=== PATIENT | female | born 1970 | race Caucasian/White ===

== ENCOUNTER 2023-10-14 20:18 | Emergency (ER) | payer OTHER, SELFPAY ==
[2023-10-14 20:24] VITALS: BP 138/95
--- NOTE | 2023-10-14 20:57 | ED.GENMED ---
History of Present Illness
General
Chief Complaint: Headache
Source: patient
Exam Limitations: none
Time Seen by Provider: 10/14/23 20:46
History of Present Illness
History of Present Illness:
See MDM
Past History
Past History
ED Past Medical History: Other (Migraines, Alcohol abuse, anxiety); Negative Asthma, HTN, Hypercholesterolemia or NIDDM
ED Past Surgical History: Gynecological (Breast augmentation)
Social History
Tobacco: Smoker (Marijuana)
Alcohol: Occasional
Drug: Marijuana
Personal: Single
Living: with family
Employment: Not employed
Family History
Family History: Other (Noncontributory)
Phy Exam
Physical Exam
Physical Exam:
See MDM
Course
Orders/Labs/Results
Orders:
Orders
10/14/23 20:52
0.9% Sodium Chloride 1000 ml [Nss] 1,000 ml IV BOLUS
Diphenhydramine [Benadryl] 25 mg IV NOW STA
Ketorolac [Toradol] 30 mg IV NOW STA
Metoclopramide [Reglan] 10 mg IV NOW STA
10/14/23 21:12
Complete Blood Count/With Diff Urgent
Comprehensive Metabolic Panel Urgent
10/14/23 21:21
Diphenhydramine [Benadryl] 25 mg IV NOW STA
10/14/23 22:37
HYDROmorphone [Dilaudid] 0.5 mg IV NOW STA
Abnormal Lab Results
10/14/23
21:12
WBC 19.1 H 10^3/uL
(4.8-10.8)
MCH 31.4 H pg
(27.0-31.0)
Abs Immat Gran (auto) 0.2 H 10^3/uL
(0-0.05)
Absolute Neuts (auto) 17.4 H 10^3/uL
(1.4-6.5)
Absolute Lymphs (auto) 1.1 L 10^3/uL
(1.2-3.4)
Immature Gran % 0.9 H %
(0-0.5)
Neutrophils % 91.1 H %
(42.2-75.2)
Lymphocytes % 5.6 L %
(20.5-51.1)
Carbon Dioxide 18 L mmol/L
(22-30)
Glucose 201 H mg/dl
(70-99)
10/14/23 21:12
10/14/23 21:12
Vital Signs
Initial and Last Documented VS:
Initial Vital Signs
Temp Pulse Resp BP Pulse Ox
98.3 F 82 20 138/95 99
10/14/23 20:24 10/14/23 20:24 10/14/23 20:24 10/14/23 20:24 10/14/23 20:24
Last Documented Vital Signs
Temp Pulse Resp BP Pulse Ox
98.3 F 82 20 131/89 98
10/14/23 20:24 10/14/23 20:24 10/14/23 20:24 10/14/23 22:00 10/14/23 22:00
MDM/Problems Addressed
Differential Diagnosis Includes:
HPI and MDM Narrative:
53-year-old female presenting for evaluation of right-sided migraine. She has a history of migraines and recently ran out of her sumatriptan. She complains of photophobia and phonophobia. Patient took nausea medicine at home with no relief.
On exam, she does appear uncomfortable. She has no tenderness to temporal artery palpation. Given her history of migraines with self-reported similar symptoms, will treat with fluids, Toradol, Reglan and Benadryl and continue to reassess
Physical exam
General: Mildly uncomfortable
HEENT: protecting airway. No tenderness to palpation of temporal artery
Neck: appears supple
CV: No evidence of cyanosis
Resp: No accessory muscle use
Abd: Non-distended
Extremities: No deformities
Neuro: alert
Psych: Normal affect
Skin: Intact
Problems Addressed including Acute and Chronic Conditions affecting care:
1. Migraine
Acuity: acute
Prognosis: stable
Details: Given her history, will give fluids, Toradol, Reglan and Benadryl
Updates
On reevaluation after medication, patient feeling much better and feels comfortable going home.
Differential Diagnosis (but not limited to): Migraine, GI bug
Testing considered: CT head but no focal deficits
Drug therapy (if applicable): OTC meds, please see d/c instruction regarding Rx drugs
Amount and/or Complexity of Data Reviewed
Clinical info obtained from: Patient
External data reviewed: N/A
Labs I independently reviewed (but not limited to): Reactive leukocytosis
Radiology: N/A
Pulse Ox: not hypoxic
EKG independently reviewed: N/A
Manager Electronic: N/A
Critical Care: N/A
Risk of Complication:
Social Determinants of health: Good social support
Discussed with other providers: N/A
Escalation of Care includes Admit/Obs: After being observed in the Emergency Department, pt stable for discharge.
Occasional wrong word or 'sound a like' substitutions may have occurred due to the inherent limitations of voice recognition software. Read the chart carefully and recognize, using context, where substitutions have occurred.
*Critical Care Note
Total Time (30-74mins, 75-104mins- exclusive of procedures): Not Applicable
ED Attending Note
-
Portions of this chart may have been created with voice recognition software.� Occasional wrong word or��sound alike� substitutions may have occurred due to the inherent limitations of voice recognition software.
Discharge Plan
Departure
Patient Disposition: Home (Routine Discharge)
Date of Disposition: 10/14/23
Time of Disposition: 22:20
Patient with high blood pressure during this ER visit?: No
Discharge Problem:
Migraine
Instructions: Migraines (DC)
Prescriptions:
New
sumatriptan succinate 100 mg tablet
100 mg PO ONCE PRN (Reason: migraine headache) Qty: 30 0RF
metoclopramide HCl [Reglan] 10 mg tablet
10 mg PO Q8HPRN PRN (Reason: nausea and vomiting) Qty: 14 0RF
No Action
sumatriptan succinate 50 MG tablet
100 mg PO DAILY PRN (Reason: migraine)
triamcinolone acetonide 0.1 % cream
1 applic TOPICAL BID PRN (Reason: eczema)
trazodone 100 mg tablet
100 mg PO HS
promethazine 25 mg tablet
25 mg PO DAILYPRN PRN (Reason: nausea vomiting) 7 Days Qty: 7 0RF
Activity Restrictions/Additional Instructions:
Please return for any worsening symptoms.
You may return at any time if you have further concerns.
Please follow up with your doctor at the first available appointment, preferably this week.
Thank you for choosing [facility].
Interventions
Interventions:
*Risk Screen - Suicide Last Done: 10/14/23 21:02
*General Assessment Last Done: 10/14/23 20:24
*Neglect/Abuse Screening Last Done: 10/14/23 20:24
ED- Fall Risk Assessment Last Done: 10/14/23 20:24
*ED COVID-19 Vaccine History Last Done: 10/14/23 20:24
ED- Neurological Assessment Last Done: 10/14/23 21:02
Discharge Date and Time
Print Language: ALGERIAN
[2023-10-14 21:02] VITALS: BMI 22.5
[2023-10-14] MEDS: NSS 1000 IV (21:12)
[2023-10-14] MEDS: TORADOL 30 MG IV (21:13)
[2023-10-14] MEDS: BENADRYL 25 MG IV (21:16)
[2023-10-14] MEDS: REGLAN 10 MG IV (21:17)
[2023-10-14 21:29] LABS: % Basophils 0.3 % (0-2); % Eosinophils 0.1 % (0-6); % Immature Granulocytes 0.9 % (0-0.5); % Lymphocytes 5.6 % (20.5-51.1); % Neutrophils 91.1 % (42.2-75.2); Absolute Basophils 0.1 10^3/uL (0-0.2); Absolute Immature Granulocytes 0.2 10^3/uL (0-0.05); Absolute Lymphocytes 1.1 10^3/uL (1.2-3.4); Absolute Monocytes 0.4 10^3/uL (0.1-0.6); Absolute Neutrophils 17.4 10^3/uL (1.4-6.5); Hematocrit 39.4 % (37.0-47.0); Mean Corp Hgb Conc. 35.5 g/dL (33.0-37.0); Mean Corpuscular Hgb 31.4 pg (27.0-31.0); Mean Corpuscular Volume 88.3 fL (81.0-99.0); Mean Platelet Volume 9.6 fL (7.4-10.4); Nucleated Red Blood Cells % 0 %; Platelet Count 284 10^3/uL (130-400); Red Blood Cell Count 4.46 10^6/uL (4.20-5.40); Red Cell Dist. Width 13.7 % (11.5-14.5); White Blood Cell Count 19.1 10^3/uL (4.8-10.8)
[2023-10-14 21:52] LABS: AST (SGOT) 26 U/L (14-36); Alkaline Phosphatase 80 U/L (38-126); Blood Urea Nitrogen 14 mg/dl (7-17); Calcium 9.8 mg/dl (8.4-10.2); Carbon Dioxide 18 mmol/L (22-30); Chloride 104 mmol/L (98-107); Estimated Creatinine Clearance 88 ml/min; Glucose 201 mg/dl (70-99); Sodium 137 mmol/L (135-145); Total Bilirubin 0.8 mg/dl (0.2-1.3); Total Protein 7.6 g/dl (6.3-8.2); eGFR > 60.00
[2023-10-14 22:00] VITALS: BP 131/89
[2023-10-14] MEDS: DILAUDID 0.5 MG IV (22:44)
[2023-10-14 23:06] LABS: ALT (SGPT) < 30 U/L (0-35)
== END 2023-10-14 23:40 | disposition home or self-care (01) ==
LOC: EMR 20:18
PROVIDERS: Emergency Medicine; EMERGENCY PHYSICIAN Student in an Organized Health Care Education/Training Program; FAMILY PHYSICIAN Internal Medicine
DX: R51.9 Headache, unspecified (principal); F10.10 Alcohol abuse, uncomplicated; F41.9 Anxiety disorder, unspecified; F12.10 Cannabis abuse, uncomplicated
CPT/HCPCS: 99283; 96374; 96375; 96376; 96361; 80053; 85025

== ENCOUNTER 2024-01-03 08:17 | Emergency (ER) | payer OTHER, SELFPAY ==
[2024-01-03 08:19] VITALS: BP 143/101
--- NOTE | 2024-01-03 08:24 | ED.GENMED ---
History of Present Illness
General
Chief Complaint: Abdominal Symptoms
Source: patient
Exam Limitations: none
Time Seen by Provider: 01/03/24 08:24
History of Present Illness
History of Present Illness:
53-year-old female presents with onset of headache gradually worsening since yesterday with associated vomiting since the onset. She takes Ozempic. No recent dose of the Ozempic. She is also currently on Keflex for a left leg infection. She has
a history of migraines. This headache feels like her migraines in the past no different. She tried Zofran and Reglan but she vomited them up at home. No fevers. She notes abdominal discomfort diffusely. No loss of vision or blurry vision. No
other complaints at this time
Past History
Past History
ED Past Medical History: Other (Migraines, Alcohol abuse, anxiety); Negative Asthma, HTN, Hypercholesterolemia or NIDDM
ED Past Surgical History: Gynecological (Breast augmentation)
Social History
Tobacco: Smoker (Marijuana)
Alcohol: Occasional
Drug: Marijuana
Personal: Single
Living: with family
Employment: Not employed
Family History
Family History: Other (Noncontributory)
Phy Exam
Physical Exam
Physical Exam:
General: Somewhat ill-appearing female no acute respiratory distress
HEENT: Normocephalic atraumatic pupils equal round reactive to light
Heart: Regular rate and rhythm
Lungs: Clear no wheeze
Abdomen soft mildly diffusely tender nondistended no guarding or rebound normal bowel sounds
Extremities: No cyanosis
Skin: Warm no rash
Course
Orders/Labs/Results
Orders:
Orders
01/03/24
Electrocardiogram (*1) Stat
Reason for Study: Chest Pain
Comment: DONE
01/03/24 08:23
0.9% Sodium Chloride 1000 ml [Nss] 1,000 ml IV BOLUS
Diphenhydramine [Benadryl] 25 mg IV NOW STA
Metoclopramide [Reglan] 10 mg IV NOW STA
01/03/24 08:38
Complete Blood Count/With Diff Urgent
Comprehensive Metabolic Panel Urgent
Lipase Urgent
01/03/24 08:55
Ketorolac [Toradol] 15 mg IV NOW STA
01/03/24 09:40
0.9% Sodium Chloride 1000 ml [Nss] 1,000 ml IV BOLUS
Abnormal Lab Results
01/03/24
08:38
WBC 15.8 H 10^3/uL
(4.8-10.8)
Plt Count 411 H 10^3/uL
(130-400)
Abs Immat Gran (auto) 0.1 H 10^3/uL
(0-0.05)
Absolute Neuts (auto) 13.8 H 10^3/uL
(1.4-6.5)
Neutrophils % 87.7 H %
(42.2-75.2)
Lymphocytes % 9.9 L %
(20.5-51.1)
Monocytes % 1.5 L %
(1.7-9.3)
Carbon Dioxide 14 L* mmol/L
(22-30)
Glucose 186 H mg/dl
(70-99)
Calcium 10.3 H mg/dl
(8.4-10.2)
ALT 47 H U/L
(0-35)
01/03/24 08:38
01/03/24 08:38
Vital Signs
Initial and Last Documented VS:
Initial Vital Signs
Temp Pulse Resp BP Pulse Ox
98.1 F 105 20 143/101 99
01/03/24 08:19 01/03/24 08:19 01/03/24 08:19 01/03/24 08:19 01/03/24 08:19
Last Documented Vital Signs
Temp Pulse Resp BP Pulse Ox
98.1 F 104 22 128/86 95
01/03/24 08:19 01/03/24 10:00 01/03/24 10:00 01/03/24 10:00 01/03/24 10:00
MDM/Problems Addressed
Differential Diagnosis Includes:
Patient with migraine type headache consistent with her prior migraines with associated vomiting. Vomiting could be related to migraine or adverse reaction from Ozempic or Keflex. Also consider viral illness. Abdomen exam is fairly benign.
Considered imaging but not indicated at this time. Will check labs including lipase. Hydrate Reglan and Benadryl ordered for symptoms.
EKG pending
*Critical Care Note
Total Time (30-74mins, 75-104mins- exclusive of procedures): Not Applicable
Update Note
Update Note:
Patient reevaluated multiple times. Feeling much better nausea is improved headache is improved. Patient's white count is elevated likely from acute phase reactant. Patient CO2 was low but she was hyperventilating upon arrival. Patient has
nausea medicine at home advise continue. She will follow-up with her family doctor stable for discharge.
ED Attending Note
-
Portions of this chart may have been created with voice recognition software.� Occasional wrong word or��sound alike� substitutions may have occurred due to the inherent limitations of voice recognition software.
Discharge Plan
Departure
Patient Disposition: Home (Routine Discharge)
Date of Disposition: 01/03/24
Time of Disposition: 11:44
Patient with high blood pressure during this ER visit?: No
Discharge Problem:
Migraine, Vomiting
Instructions: Nausea and Vomiting, Adult (DC)
Prescriptions:
No Action
trazodone 100 mg tablet
100 mg PO HS
metoprolol succinate [Toprol XL] 50 mg Tablet Extended Release 24 Hr
50 mg PO DAILY
hydrocodone-acetaminophen 5-325 mg Tablet
1 tab PO Q4HPRN PRN (Reason: severe pain)
ibuprofen [Advil] 200 mg Tablet
400 mg PO Q6HPRN PRN (Reason: mild pain)
escitalopram oxalate [Lexapro] 5 mg Tablet
5 mg PO HS
Nurtec ODT 75 mg Tablet,Disintegrating
75 mg PO DAILYPRN PRN (Reason: migraines)
Nutrafol Women Hair Growth capsule
1 cap PO DAILY
sumatriptan succinate 100 mg tablet
100 mg PO DAILYPRN PRN (Reason: migraine headache)
Referrals:
Vu Rodriges MD [Family Provider] -
Activity Restrictions/Additional Instructions:
Rest. Drink plenty fluids. Use your nausea medicine as needed. Turn if worse otherwise follow-up with your family doctor
Interventions
Interventions:
*Risk Screen - Suicide Last Done: 01/03/24 09:00
*General Assessment Last Done: 01/03/24 08:57
*Neglect/Abuse Screening Last Done: 01/03/24 09:00
*ED COVID-19 Vaccine History Last Done: 01/03/24 08:51
TC-Fuikwq-Yiijnittmc Assessment Last Done: 01/03/24 09:00
Discharge Date and Time
Print Language: KYRGYZ
[2024-01-03] MEDS: BENADRYL 25 MG IV (08:26)
[2024-01-03] MEDS: REGLAN 10 MG IV (08:26)
[2024-01-03] MEDS: NSS 1000 IV ×2 (08:27→10:06)
[2024-01-03 08:45] LABS: % Basophils 0.4 % (0-2); % Eosinophils 0.1 % (0-6); % Immature Granulocytes 0.4 % (0-0.5); % Lymphocytes 9.9 % (20.5-51.1); % Monocytes 1.5 % (1.7-9.3); % Neutrophils 87.7 % (42.2-75.2); Absolute Basophils 0.1 10^3/uL (0-0.2); Absolute Immature Granulocytes 0.1 10^3/uL (0-0.05); Absolute Lymphocytes 1.6 10^3/uL (1.2-3.4); Absolute Monocytes 0.2 10^3/uL (0.1-0.6); Absolute Neutrophils 13.8 10^3/uL (1.4-6.5); Hematocrit 42.2 % (37.0-47.0); Hemoglobin 14.9 g/dL (12.0-16.0); Mean Corp Hgb Conc. 35.3 g/dL (33.0-37.0); Mean Corpuscular Hgb 30.6 pg (27.0-31.0); Mean Corpuscular Volume 86.7 fL (81.0-99.0); Mean Platelet Volume 9.3 fL (7.4-10.4); Nucleated Red Blood Cells % 0 %; Platelet Count 411 10^3/uL (130-400); Red Blood Cell Count 4.87 10^6/uL (4.20-5.40); Red Cell Dist. Width 14.3 % (11.5-14.5); White Blood Cell Count 15.8 10^3/uL (4.8-10.8)
[2024-01-03 09:00] VITALS: BP 140/91
[2024-01-03 09:04] LABS: AST (SGOT) 36 U/L (14-36); Alkaline Phosphatase 73 U/L (38-126); Blood Urea Nitrogen 14 mg/dl (7-17); Calcium 10.3 mg/dl (8.4-10.2); Chloride 104 mmol/L (98-107); Estimated Creatinine Clearance 88 ml/min; Glucose 186 mg/dl (70-99); Lipase 71 U/L (23-300); Sodium 140 mmol/L (135-145); Total Bilirubin 0.4 mg/dl (0.2-1.3); Total Protein 7.5 g/dl (6.3-8.2); eGFR > 60.00
[2024-01-03] MEDS: TORADOL 15 MG IV (09:07)
[2024-01-03 09:18] LABS: ALT (SGPT) 47 U/L (0-35); Albumin 4.8 g/dl (3.5-5.0); Carbon Dioxide 14 mmol/L (22-30)
[2024-01-03 10:00] VITALS: BP 128/86
[2024-01-03 11:00] VITALS: BP 130/86
[2024-01-03 12:00] VITALS: BP 125/89
== END 2024-01-03 12:25 | disposition home or self-care (01) ==
LOC: EMR 08:17
PROVIDERS: Physician Assistant; EMERGENCY PHYSICIAN Emergency Medicine; FAMILY PHYSICIAN Internal Medicine
DX: R11.2 Nausea with vomiting, unspecified (principal); R51.9 Headache, unspecified; F17.200 Nicotine dependence, unspecified, uncomplicated; F12.90 Cannabis use, unspecified, uncomplicated; Z79.85 Long-term (current) use of injectable non-insulin antidiabetic drugs
CPT/HCPCS: 99284; 96374; 96375; 96361; 80053; 83690; 85025; 93005

== ENCOUNTER 2024-01-19 15:07 | Inpatient (IN) | payer OTHER, SELFPAY ==
[2024-01-19] VITALS (8 sets, daily range): BP systolic 140–174; BP diastolic 102–131; BMI 23.2; BMI 22.6
--- NOTE | 2024-01-19 08:41 | ED.GENMED ---
History of Present Illness
General
Chief Complaint: Abdominal Symptoms
Time Seen by Provider: 01/19/24 08:25
History of Present Illness
History of Present Illness:
53-year-old female presents to the emergency department for evaluation of acute onset of lower abdominal pain associated with vomiting and diarrhea beginning earlier this morning. Pain has been severe, colicky in nature, and she has been unable to
tolerate any p.o. fluids. She did start Ozempic approximately 6 weeks ago, no reported dose changes recently. No prior abdominal surgeries
Past History
Past History
ED Past Medical History: Other (Migraines, Alcohol abuse, anxiety); Negative Asthma, HTN, Hypercholesterolemia or NIDDM
ED Past Surgical History: Gynecological (Breast augmentation)
Social History
Tobacco: Smoker (Marijuana)
Alcohol: Occasional
Drug: Marijuana
Personal: Single
Living: with family
Employment: Not employed
Family History
Family History: Other (Noncontributory)
Review of Systems
Review of Systems
Allergies reviewed?: Yes
All Other Systems: ROS reviewed and negative except as documented in HPI and ROS
Phy Exam
Physical Exam
Physical Exam:
GEN: Writhing In pain, tearful
Eyes: PERRLA, EOMs intact, no scleral icterus
HENT: NCAT, oral mucosa moist, no JVD, no cervical adenopathy.
Lungs: CTAB, no wheezes, rales, rhonchi, normal chest wall excursion
Cardiac: Tachycardic, regular
Abdomen: Soft, tenderness elicited to all 4 quadrants, focality, no rigidity
Neuro: AO x 3
MSK: No gross deformity or ecchymosis. No edema. No digital clubbing
Skin: No rashes, petechiae. Normal color, no pallor or jaundice.
Psych: Calm, cooperative, proper hygiene
Course
Orders/Labs/Results
Orders:
Orders
01/19/24 08:34
0.9% Sodium Chloride 1000 ml [Nss] 1,000 ml IV BOLUS
Ketorolac [Toradol] 15 mg IV NOW STA
Ondansetron Injectable [Zofran] 4 mg IV NOW STA
01/19/24 08:54
Test Result ONCE
01/19/24 08:56
CMP [Comprehensive Metabolic Panel] Urgent
Complete Blood Count/With Diff Urgent
HCG, Serum Qualitative Screen Urgent
Lipase Urgent
Manual Differential Urgent
01/19/24 08:59
HYDROmorphone [Dilaudid] 0.5 mg IV NOW STA
01/19/24 09:37
CT Abd/Pel (IV only)-DH only Urgent
Comment:
Reason For Exam: N/V/D, generalized pain
HYDROmorphone [Dilaudid] 0.5 mg IV NOW STA
01/19/24 10:49
Morphine Sulfate 4 mg IV NOW STA
01/19/24 10:56
Metoclopramide [Reglan] 10 mg IV NOW STA
01/19/24 11:27
Urinalysis Reflex To Culture Urgent
Date Specimen was Collected: 01/19/24
Time Specimen was Collected: 11:21
01/19/24 12:18
Lactic Acid Routine
Abnormal Lab Results
01/19/24 01/19/24
08:56 11:27
WBC 22.2 H 10^3/uL
(4.8-10.8)
RDW 14.6 H %
(11.5-14.5)
Abs Neuts (Manual) 19.7 H 10^3/uL
(1.4-6.5)
Segmented Neutrophils 89 H %
(42-75)
Lymphocytes (Manual) 11 L %
(20-51)
Carbon Dioxide 16 L mmol/L
(22-30)
Glucose 136 H mg/dl
(70-99)
Albumin 5.1 H g/dl
(3.5-5.0)
Urine Ketones 2+ A
(Negative)
Urine Glucose Trace A
(Negative)
01/19/24 08:56
01/19/24 08:56
Vital Signs
Initial and Last Documented VS:
Initial Vital Signs
Temp Pulse Resp BP Pulse Ox
98.2 F 98 16 162/110 98
01/19/24 08:20 01/19/24 08:20 01/19/24 08:20 01/19/24 08:20 01/19/24 08:20
Last Documented Vital Signs
Temp Pulse Resp BP Pulse Ox
98.2 F 109 14 150/102 91
01/19/24 08:20 01/19/24 11:15 01/19/24 11:15 01/19/24 11:00 01/19/24 11:15
MDM/Problems Addressed
MDM/Problems Addressed:
No clear etiology to the patient's symptoms. Likely gastroenteritis given the acute onset of pain associated with vomiting and diarrhea. CT shows no acute pathology. Her pain was uncontrolled despite multiple rounds of IV opioids and NSAIDs, will
admit for further supportive management
*Critical Care Note
Total Time (30-74mins, 75-104mins- exclusive of procedures): Not Applicable
ED Attending Note
-
Portions of this chart may have been created with voice recognition software.� Occasional wrong word or��sound alike� substitutions may have occurred due to the inherent limitations of voice recognition software.
Discharge Plan
Departure
Patient Disposition: Admit
Date of Disposition: 01/19/24
Time of Disposition: 11:37
Presentation/result/management discussed w/ accepting MD/DO: Hospitalist
Discharge Problem:
Intractable abdominal pain
Prescriptions:
No Action
trazodone 100 mg tablet
100 mg PO HS
escitalopram oxalate [Lexapro] 5 mg Tablet
5 mg PO HS
Nurtec ODT 75 mg Tablet,Disintegrating
75 mg PO DAILYPRN PRN (Reason: migraines)
Nutrafol Women Hair Growth capsule
1 cap PO DAILY
sumatriptan succinate [Imitrex] 100 mg tablet
100 mg PO DAILYPRN PRN (Reason: mirgraines)
ondansetron [Zofran ODT] 4 mg Tablet,Disintegrating
4 mg PO Q6HPRN PRN (Reason: nausea)
ibuprofen-acetaminophen [Advil Dual Action] 125-250 mg Tablet
1 tab PO Q8HPRN PRN (Reason: mild pain)
Ozempic 0.25 mg or 0.5 mg (2 mg/3 mL) Pen Injector
0.6 mg SC MO
Rx Instructions:
for 4 weeks
Referrals:
Vu Rodriges MD [Family Provider] -
Interventions
Interventions:
*Risk Screen - Suicide Last Done: 01/19/24 08:20
*General Assessment Last Done: 01/19/24 08:49
*Neglect/Abuse Screening Last Done: 01/19/24 08:20
ED- Fall Risk Assessment Last Done: 01/19/24 08:49
YQ-Pnyroq-Ivdbkhvrej Assessment Last Done: 01/19/24 08:49
Discharge Date and Time
Print Language: MONGOLIAN
[2024-01-19] MEDS: NSS 1000 IV ×3 (08:46→17:54)
[2024-01-19] MEDS: ZOFRAN 4 MG IV ×2 (08:47→15:08)
[2024-01-19] MEDS: TORADOL 15 MG IV (08:47)
[2024-01-19] MEDS: DILAUDID 0.5 MG IV ×2 (09:01→09:40)
[2024-01-19 09:11] LABS: Hematocrit 40.2 % (37.0-47.0); Hemoglobin 13.8 g/dL (12.0-16.0); Mean Corp Hgb Conc. 34.3 g/dL (33.0-37.0); Mean Corpuscular Hgb 30.4 pg (27.0-31.0); Mean Corpuscular Volume 88.5 fL (81.0-99.0); Mean Platelet Volume 9.4 fL (7.4-10.4); Platelet Count 339 10^3/uL (130-400); Red Blood Cell Count 4.54 10^6/uL (4.20-5.40); Red Cell Dist. Width 14.6 % (11.5-14.5); White Blood Cell Count 22.2 10^3/uL (4.8-10.8)
[2024-01-19 09:17] LABS: HCG, Serum Qualitative Screen Negative
[2024-01-19 09:20] LABS: ALT (SGPT) 17 U/L (0-35); AST (SGOT) 24 U/L (14-36); Albumin 5.1 g/dl (3.5-5.0); Alkaline Phosphatase 66 U/L (38-126); Blood Urea Nitrogen 13 mg/dl (7-17); Calcium 9.8 mg/dl (8.4-10.2); Carbon Dioxide 16 mmol/L (22-30); Chloride 104 mmol/L (98-107); Estimated Creatinine Clearance 88 ml/min; Glucose 136 mg/dl (70-99); Lipase 61 U/L (23-300); Potassium 3.9 mmol/L (3.5-5.1); Sodium 144 mmol/L (135-145); Total Bilirubin 0.4 mg/dl (0.2-1.3); eGFR > 60.00
[2024-01-19 09:31] LABS: Absolute Neutrophils -Man Diff 19.7 10^3/uL (1.4-6.5); Band Neutrophils 0 % (0-3); Lymphocytes 11 % (20-51); Normal RBC Morphology Yes; Platelets Checked Yes; Segmented Neutrophils 89 % (42-75)
[2024-01-19 09:32] LABS: Total Cells Counted 100
[2024-01-19] MEDS: REGLAN 10 MG IV ×2 (11:01→17:53)
[2024-01-19] MEDS: MORPHINE SULFATE 4 MG IV ×2 (11:01→13:33)
[2024-01-19 11:50] LABS: Urine Albumin Trace (Neg - Trace); Urine Bilirubin Negative (Negative); Urine Character Clear (Clear); Urine Color Yellow; Urine Glucose Trace (Negative); Urine Ketone 2+ (Negative); Urine Leukocyte Negative (Negative); Urine Nitrite Negative (Negative); Urine Occult Blood Negative (Negative); Urine Specific Gravity 1.005 (<1.030); Urine Urobilinogen Negative (Neg - 1+)
--- NOTE | 2024-01-19 12:14 | HPS.HSE ---
Family Physician
-
Family Physician: Vu Rodriges
Chief Complaint
-
Nausea vomiting abd pain
History of Present Illness
53F hx migraine medicinal marijuana 10 years p/w acute onset nausea vomiting diarrhea abd pain that started in the morning. Abd with diffuse pain tenderness, day prior patient reported being in her usually state of health. denies fevers chills
coughing sneezing. Patient has been on ozempic for past 6 weeks, most recent dose on Tuesday 3 days ago. Patient also endorses recent spotting day prior to presentation, history uterine fibroids, irregular period cycles, last full period many
months ago. Labs notable for white count 22.2 and lactic acidosis 3.1 possibly all due to dehydration stress reactive. No significant kidney/liver dysfunction or bilirubin elevation noted.
Medical History
Past Medical History
Past Medical History: Reports Other (as above)
Past Surgical History: Reports Other (as above)
Social History
Tobacco: Non-smoker
Alcohol: None
Drug: None
Personal:
Living: With Family
Family History
Family History: Not pertinent (reviewed)
Allergies / Home Medications
Allergies reflects when Allergies were last updated in [facility].
Home Medications with original date entered in [facility]
Allergy/Medication List:
Allergies
Allergy/AdvReac Type Severity Reaction Status Date / Time
prochlorperazine Allergy Unknown Verified 01/19/24 08:23
[From Compazine]
Home Medications
trazodone 100 mg tablet 100 mg PO HS Sleep 03/02/22
Nutrafol Women Hair Growth 1 cap PO DAILY 01/03/24
escitalopram oxalate 5 mg tablet (Lexapro) 5 mg PO HS 01/03/24
rimegepant 75 mg disintegrating tablet (Nurtec ODT) 75 mg PO DAILYPRN PRN migraines 01/03/24
ibuprofen 125 mg-acetaminophen 250 mg tablet (Advil Dual Action) 1 tab PO Q8HPRN PRN mild pain 01/19/24
ondansetron 4 mg disintegrating tablet 4 mg PO Q6HPRN PRN nausea 01/19/24
semaglutide 0.25 mg or 0.5 mg (2 mg/3 mL) subcutaneous pen injector (Ozempic) 0.6 mg SC MO 01/19/24
sumatriptan succinate 100 mg tablet (Imitrex) 100 mg PO DAILYPRN PRN mirgraines 01/19/24
Review of Systems
-
A 12 point ROS was completed and negative except as noted: Yes
Constitutional: Reports Sleep Disturbance (as below)
Physical Exam
Vital Signs
Vital Signs
Temp Pulse Resp BP Pulse Ox
98.2 F 109 14 150/102 91
01/19/24 08:20 01/19/24 11:15 01/19/24 11:15 01/19/24 11:00 01/19/24 11:15
Physical Exam
General: Other (as below)
Laboratory Results
-
01/19/24 08:56
01/19/24 08:56
Laboratory Results
Total Bilirubin 0.4 mg/dl (0.2-1.3) 01/19/24 08:56
AST 24 U/L (14-36) 01/19/24 08:56
ALT 17 U/L (0-35) 01/19/24 08:56
Alkaline Phosphatase 66 U/L (38-126) 01/19/24 08:56
Lipase 61 U/L (23-300) 01/19/24 08:56
Impression/Plan
-
ROS
General: Denies fever chills night sweats unexpected weight loss
Neuro: Denies seizure shaking loss of consciousness dizziness vertigo
Psych: denies depression hallucinations confusion manic episodes
Endocrine: Denies polyuria polydipsia polyphagia heat/cold intolerance
HEENT: Denies blindness visual disturbances epistaxis
Pulmonary: denies coughing hemoptysis sneezing sob dyspnea on exertion
Cardiovascular: denies chest pain palpitations leg swelling
Hematology: denies signs symptoms of anemia easy bruising/bleeding
Gastrointestinal: reports nausea vomiting diarrhea abd pain
Genito-Urinary: denies retention incontinence dysuria
Musculoskeletal: denies joint pain weakness
Dermatology: denies rash laceration bruising
Physical Exam
General: No pallor, cyanosis, or jaundice. Moderate severe distress d/t nausea vomiting abd pain
HEENT: Throat clear. PERRLA Normocephalic atraumatic
NECK: Supple. No JVD Carotid Bruits
RESPIRATORY: Lungs clear to auscultation. No crackles wheezes stridor
CVS: S1, S2 normal. RRR. No murmur, rub or gallop.
ABDOMEN: Soft, diffuse tenderness decreased bowel sounds
EXTREMITIES: No peripheral cyanosis or edema.
ADVISORY SOFTWARE ENGINEER: AOx3
IMPRESSION:
53F hx depression insomnia migraine on medicinal marijuana 10 years p/w acute onset nausea vomiting diarrhea abd pain that started in the morning. Abd with diffuse pain tenderness, day prior patient reported being in her usually state of health.
denies fevers chills coughing sneezing. Patient has been on ozempic for past 6 weeks, most recent dose on Tuesday 3 days ago. Patient also endorses recent spotting day prior to presentation, history uterine fibroids, irregular period cycles, last
full period many months ago. Labs notable for white count 22.2 and lactic acidosis 3.1 possibly all due to dehydration stress reactive. No significant kidney/liver dysfunction or bilirubin elevation noted. No acute abn's noted on CT abd/pelvis w
IV contrast only.
PLAN:
#Abd pain Nausea/vomiting unclear etiology
#White Count elevation Lactic acidosis most likely stress reactive dehydration
#hx Uterine Fibroids, irregular cycle, spotting prior to onset of symptoms
#possible Ozempic side effect
Tele
IVF support bowel rest NPO except meds
pain control
antiemetic prn
check blood culture, procalcitonin, repeat lactic acid
empiric ceftriaxone flagyll
GI Surgery Hazardous Waste Technician eval
#Depression/Insomonia
hold Lexapro for now to minimize QT prolonging agents
cont home Trazodone
#Migraine
cont Nurtec prn (patient's own med)
DVT ppx SCD
GI ppx Protonix
Full Code
I spent a total of 80 minutes with the patient or on the floor. More than 50% of this time involved counseling and coordination of care.
[2024-01-19 13:26] LABS: Lactic Acid 3.1 mmol/L (0.7-2.0)
[2024-01-19] MEDS: DILAUDID 1 MG IV ×2 (15:09→17:53)
--- NOTE | 2024-01-19 16:20 | CON.GS ---
Addendum entered and electronically signed by Adair Malik MD 01/19/24 18:12:
Patient seen and examined independently of surgical nurse practitioner. Agree with documented consultation which is consistent with my current examination and evaluation with additions noted here.
53-year-old female who developed acute onset of nausea, vomiting abdominal pain and loose stools. Was feeling fine until midnight. She ate out to dinner last night with her family/friends at a [employer] house. No other sick contacts. Pain
worse in the bilateral lower quadrants. Has continued with intractable nausea and vomiting. Pain not worse nor improving. Few episodes of loose stools but not watery diarrhea. No sick contacts she is aware of. Similar episode in the past but
not to the severity.
She has been on Ozempic since October which she was tolerating with only occasional nausea after her prior dosages. She did increase her dose by '1 unit' this past week on Tuesday so her initial thought was that this may be related.
No significant past abdominal surgical history. Past medical history only notable for migraines, depression.
AF sinus tachycardia low 100s, BP stable, elevated
Uncomfortable appearing and acutely ill-appearing but able to provide details of history taking
ABD: Soft, nondistended, mild tenderness palpation bilateral upper quadrants, more significant tenderness palpation bilateral lower quadrants with voluntary guarding. Firm, fibroid uterus palpable in the suprapubic area.
Laboratory testing notable for white blood cell count of 22.2 and neutrophil shift but no bandemia. Electrolytes with metabolic acidosis, carbon dioxide 16 and Lactic acid 3.1.
Ultrasound abdomen and CT abdomen/pelvis imaging personally reviewed as well as radiologist reports. Abdominal ultrasound was unremarkable without any gallbladder or biliary pathology. CT imaging fairly unremarkable as well, radiologist discussed
submucosal fatty tissue deposits within the regions of the colon but no significant inflammatory changes or wall thickening. No free fluid/ascites, no evidence of bowel obstruction. No free air, no pneumatosis, no volvulus/closed-loop obstruction
or internal hernia signs.
Assessment/plan: 53-year-old female with intractable nausea/vomiting and abdominal pain as well as loose stools.
Uncertain etiology; possible adverse reaction to recent increase in Ozempic dosage; possible viral gastroenteritis. She is also been on a prolonged course of antibiotics recently would check stool studies as well.
There does not appear to be any radiographic evidence of bowel threat, compromise or intra-abdominal process requiring surgical intervention.
Continue with analgesics, antiemetics and IV fluid resuscitation, supportive care
Bowel rest
Will follow
Original Note:
Medical History
-
Chief Complaint: abdominal pain
History of Present Illness:
Ms Cook is a 53 yo female with h/o migraines tx Imitrex and known uterine fibroid (following medically) who presents with acute onset of nausea, vomiting with diarrhea and lower abdominal pain which acutely began around midnight. She notes that
initially, she was vomiting undigested food and now gastric contents tinged with blood. She is retching during exam and unable to speak without dry heaving. She reports several episodes of diarrhea which was loose and brown without blood noted. She
is tender on exam to the bilateral lower quadrants with palpable uterine fundus. No significant distention. RUQ and LUQ nontender on exam. She presented in 2021 with similar symptoms but notes the pain this time feels a little different. At that
time a hysterectomy was recommended; since that time, she has sought a second opinion and is following nonoperatively. She denies prior abdominal surgeries or known history of IBD. She denies dysuria, fevers or chills. She denies recent sick
contacts or changes to diet. She has been on Ozempic for past 6 weeks with most recent dose on Tuesday 3 days ago.
Past Medical History
Past Medical History: Psychiatric (depression) and Other (migraines)
Past Surgical History: Other (breast augmentation)
Social History
Tobacco: Non-Smoker
Alcohol: None
Personal:
Living: With Family
Family History
Family History: Reviewed & Not Pertinent
Allergies / Home Medications
Allergy/AdvReac Type Severity Reaction Status Date / Time
prochlorperazine Allergy Unknown Verified 01/19/24 08:23
[From Compazine]
�Medication �Instructions �Recorded �Confirmed �Type
trazodone 100 mg tablet 100 mg PO HS Sleep 03/02/22 01/19/24 History
Nutrafol Women Hair Growth 1 cap PO DAILY 01/03/24 01/19/24 History
escitalopram oxalate 5 mg tablet 5 mg PO HS 01/03/24 01/19/24 History
(Lexapro)
rimegepant 75 mg disintegrating 75 mg PO DAILYPRN PRN migraines 01/03/24 01/19/24 History
tablet (Nurtec ODT)
ibuprofen 125 mg-acetaminophen 250 1 tab PO Q8HPRN PRN mild pain 01/19/24 01/19/24 History
mg tablet (Advil Dual Action)
ondansetron 4 mg disintegrating 4 mg PO Q6HPRN PRN nausea 01/19/24 01/19/24 History
tablet
semaglutide 0.25 mg or 0.5 mg (2 0.6 mg SC MO 01/19/24 01/19/24 History
mg/3 mL) subcutaneous pen injector
(Ozempic)
sumatriptan succinate 100 mg 100 mg PO DAILYPRN PRN mirgraines 01/19/24 01/19/24 History
tablet (Imitrex)
Review of Systems
-
Unable to obtain full review of systems at this time due to: Other (n/v/retching)
History Source: Patient
All other systems: Negative unless noted
A 10 point review of systems was completed, and was negative except as per HPI.
Physical Exam
Vital Signs
Temp Pulse Resp BP Pulse Ox
98.2 F 104 20 150/102 98
01/19/24 08:20 01/19/24 15:30 01/19/24 15:30 01/19/24 11:00 01/19/24 15:30
01/18/24 01/19/24 01/20/24
06:59 06:59 06:59
Actual Weight 65.1 kg
Body Mass Index (BMI) 23.2
Lab Results
01/19/24 08:56
01/19/24 08:56
WBC 22.2 10^3/uL (4.8-10.8) H 01/19/24 08:56
Hgb 13.8 g/dL (12.0-16.0) 01/19/24 08:56
Hct 40.2 % (37.0-47.0) 01/19/24 08:56
Plt Count 339 10^3/uL (130-400) 01/19/24 08:56
Physical Exam
General: Other (Retching); Negative No Apparent Distress
HEENT: Normocephalic
Respiratory: Non Labored Respirations
GI: Soft, Non Distended and Tender (BL lower quadrants)
Genito-urinary: Other (palpable uterine fundus)
Skin: Warm and Dry
Neuro: Awake, Alert and AO x 3
Psych: Calm
Data Reviewed
-
CT Scan: Image Personally Visualized and interpreted, Report Reviewed by me, Discussed with Physician and Discussed with Patient
Labs: Labs Reviewed by me, Discussed with Physician and Discussed with Patient
Old Records: Reviewed
Assessment / Plan
-
Ms Cook is a 53 yo female with h/o migraines and known uterine fibroids who presents with acute onset of nausea, vomiting with diarrhea and lower abdominal pain which acutely began around midnight. She notes that initially, she was vomiting
undigested food and now gastric contents tinged with blood. She reports the diarrhea was loose and brown without blood noted. She is tender on exam to the bilateral lower quadrants with palpable uterine fundus. No significant distention. RUQ and LUQ
nontender on exam. Intractable vomiting noted.
CT imaging with IV contrast only with progression of uterine myomas/iud in place. No pneumoperitoneum or evidence of bowel threat/compromise. No evidence of appendicitis, diverticulitis, obstruction or bowel wall thickening (although limited d/t
lack of oral contrast).
UA unremarkable. Leukocytosis present with mildly elevated lactic acid present. LFT's WNL. Afebrile. Mild tachycardia present with hypertension. Unclear etiology of symptoms. Will check ABD US to r/o cholecystitis although pain is in the lower
abdomen so low suspicion.
--ABD US pending
--GI and POSTAL SERVICE WINDOW CLERK consults pending
--Medical management as per primary team
Will review imaging/films with attending surgeon with further surgical recommendations to follow
[2024-01-19 17:38] LABS: Procalcitonin < 0.05 ng/ml (0.0-0.25)
[2024-01-19] MEDS: PROTONIX IV 40 MG IV (17:54)
[2024-01-19] MEDS: ROCEPHIN 1000 MG IV (17:54)
[2024-01-19] MEDS: NSS (PRESERVATIVE FREE) 10 ML IV (17:54)
[2024-01-19] MEDS: STERILE WATER FOR INJECTION 10 ML IV (17:55)
[2024-01-19] MEDS: FLAGYL 500 MG 100 IV (18:20)
--- NOTE | 2024-01-19 20:20 | CON.MD ---
Consultation - Medical
-
53 yo [id number] admitted for abd pain and nausea. Pt with h/o similar episode 2 years ago but this episode is worse. She was feeling well until today. Has been taking Ozempic prescribed by a in [place] for the last 6 weeks for wt loss. She is not
over weight or diabetic. She did increase the dose of med she injected this week. She is feeling better since being hospitalized and is on antibiotics and pain meds. Still discomfort that comes in waves but is better than it was on arrival. ER BW
significant for elevated WBC (22.2) and lactic acid (3.1). CT scan showed + fibroids. Largest 8cm - it was 7cm in [address] report[address] IUD is in correct place and no free fluid. Previous u/s in 03/2022 showed subserosal fibroids x 3.
We were consulted for fibroid as cause of pain. She has known fibroids and has seen Dr. Zhu and Dr. Camacho for these fibroids in the past. At that time she opted for no intervention bc she was not having any prob with menses, pain etc. She
has an IUD that was placed about 10 years ago by a Dr at [facility] but she does not remember the name. IUD is paragard and is prob past the 10 years it is FDA approved for. She is perimenopausal with menses q 3 months with VB for 5-7 days. Preg test in
ER was negative. No anemia with hgb = 13.8. No new partners - this episode was not assoc with sexual activity.
PMH - Migraines, Depression/Anxiety, Alcohol and benzodiaepine abuse
PSH - Breast augmentation 2103 - Foot fx repair - 2023
All- Compazine
Meds - at home per pt report - - - Trazadone, Medical THC, Imitrex, Nyrtec, Zofran, Lexapro, Gabapentin, Ozempic
POBH - [id number] - NVD x 2 - miscarriage x1
PGYNH - BC = Paragard - likely past due - + seen on imaging correct location
Perimenopausal + known fibroids
PE - 98.0F - 96-18-174/131 - sats 98% on RA
PT with nausea and dry heaves
HEENT - wnl
Lungs - clear
CV - RRR
Abd - soft + diffuse tenderness - + vol guarding - no rebound + BX
Ext - no edema
Pelvic - EG wnl - vag - no blood
Cx - palp normal - small in size - no CMT
Uterus + palp fibroid on exam 14 weeks size
Ass - abd pain with n/v and diarrhea
Pt with known fibroids - unlikely source of pain or nausea
Consider side effect of Ozempic or other cause of gastritis
Plan-
Will order u/s for tomorrow to better see fibroids and poss ovaries
Disc with pt nature of fibroids and course after menopause
She seems to be having minimal symptoms with no aub - no anemia.
Rec she f/u as out pt with Audra or Doug for fpc mgmt plan
Will cont to follow with you
See dictated note
[2024-01-19] MEDS: DESYREL 100 MG PO (21:15)
[2024-01-19] MEDS: TIGAN 200 MG IM (21:28)
--- NOTE | 2024-01-19 23:09 | PTCARENOTE ---
Pt reporting no relief with prescribed nausea medications. CREDIT INTERVIEWER aware ordered one time dose of Benadryl. Will continue to monitor.
[2024-01-19 23:10] LABS: Lactic Acid 0.9 mmol/L (0.7-2.0)
[2024-01-19] MEDS: BENADRYL 25 MG IV (23:48)
[2024-01-20] MEDS: FLAGYL 500 MG 100 IV (02:30)
[2024-01-20 03:35] VITALS: BP 150/98
[2024-01-20] MEDS: REGLAN 10 MG IV ×3 (04:02→20:49)
[2024-01-20 05:46] LABS: Hematocrit 34.3 % (37.0-47.0); Mean Corpuscular Hgb 30.5 pg (27.0-31.0); Mean Corpuscular Volume 87.1 fL (81.0-99.0); Mean Platelet Volume 9.3 fL (7.4-10.4); Platelet Count 249 10^3/uL (130-400); Red Blood Cell Count 3.94 10^6/uL (4.20-5.40); Red Cell Dist. Width 14.6 % (11.5-14.5); White Blood Cell Count 13.4 10^3/uL (4.8-10.8)
[2024-01-20 06:07] LABS: ALT (SGPT) 14 U/L (0-35); AST (SGOT) 22 U/L (14-36); Alkaline Phosphatase 45 U/L (38-126); Blood Urea Nitrogen 12 mg/dl (7-17); Calcium 9.1 mg/dl (8.4-10.2); Carbon Dioxide 24 mmol/L (22-30); Chloride 102 mmol/L (98-107); Estimated Creatinine Clearance 103 ml/min; Glucose 93 mg/dl (70-99); Potassium 3.4 mmol/L (3.5-5.1); Sodium 139 mmol/L (135-145); Total Bilirubin 0.5 mg/dl (0.2-1.3); Total Protein 6.4 g/dl (6.3-8.2); eGFR > 60.00
[2024-01-20] MEDS: NSS 1000 IV (06:26)
[2024-01-20] MEDS: DILAUDID 1 MG IV ×6 (06:31→23:49)
[2024-01-20 07:15] VITALS: BP 139/97
--- NOTE | 2024-01-20 07:21 | W.PN.HOSP.TC ---
Today's Communication/Plan
-
cont IVF LR
empiric IV protonix
supportive care
pain control
antiemetics prn
Assessment / Plan
Assessment / Plan
Physical Exam
General: No pallor, cyanosis, or jaundice. Moderate distress d/t nausea vomiting abd pain
HEENT: Throat clear. PERRLA Normocephalic atraumatic
NECK: Supple. No JVD Carotid Bruits
RESPIRATORY: Lungs clear to auscultation. No crackles wheezes stridor
CVS: S1, S2 normal. RRR. No murmur, rub or gallop.
ABDOMEN: Soft, diffuse tenderness decreased bowel sounds
EXTREMITIES: No peripheral cyanosis or edema.
CAREER TECHNICAL COUNSELOR: AOx3
IMPRESSION:
53F hx depression insomnia migraine on medicinal marijuana 10 years p/w acute onset nausea vomiting diarrhea abd pain that started in the morning. Abd with diffuse pain tenderness, day prior patient reported being in her usually state of health.
denies fevers chills coughing sneezing. Patient has been on ozempic for past 6 weeks, most recent dose on Tuesday 3 days ago. Patient also endorses recent spotting day prior to presentation, history uterine fibroids, irregular period cycles, last
full period many months ago. Labs notable for white count 22.2 and lactic acidosis 3.1 possibly all due to dehydration stress reactive. No significant kidney/liver dysfunction or bilirubin elevation noted. No acute abn's noted on CT abd/pelvis w
IV contrast only.
PLAN:
#Abd pain Nausea/vomiting unclear etiology
#White Count elevation Lactic acidosis most likely stress reactive dehydration
#hx Uterine Fibroids, irregular cycle, spotting prior to onset of symptoms
#possible Ozempic side effect
Tele
IVF support bowel rest NPO except meds
pain control
antiemetic prn
blood culture ngtd, procalcitonin negative, lactic acidosis resolved
empiric ceftriaxone flagyll discontinued monitor off
GI Surgery Vp Of Product eval appreciated
Abd US appreciated
Pelvic US appreciated
Empiric IV protonix 40 mg BID
stool studies
#Mild Hypokalemia
IVF NS switched to LR
#Depression/Insomonia
hold Lexapro for now to minimize QT prolonging agents
cont home Trazodone
#Migraine
headache free at this time.
DVT ppx SCD
GI ppx Protonix
Full Code
I spent a total of 50 minutes with the patient or on the floor. More than 50% of this time involved counseling and coordination of care.
Anticipated Discharge: 24 - 48 hours
Subjective/Interval History
-
Date of Service: January 20, 2024
some improvement pain/nausea noted though not resolved remains severe.
Objective Data
-
Labs:
Laboratory Results
01/20/24
05:26
WBC 13.4 H
Hgb 12.0
Hct 34.3 L
Plt Count 249 D
Sodium 139
Potassium 3.4 L
Chloride 102
Carbon Dioxide 24
BUN 12
Creatinine 0.6
Glucose 93
Calcium 9.1
Total Bilirubin 0.5
AST 22
ALT 14
Alkaline Phosphatase 45
Vital Signs:
Vital Signs
Temp Pulse Resp BP Pulse Ox
98.2 F 94 14 150/98 96
01/20/24 03:35 01/20/24 03:35 01/20/24 03:35 01/20/24 03:35 01/20/24 03:35
--- NOTE | 2024-01-20 07:22 | W.PN.GYN.DG ---
Today's Communication / Plan
-
Pelvic u/s ordered - from previous imaging, fibroids are intermediate and seem stable.
Pt can be d/c from POSITION DESCRIPTION MANAGER standpoint. Pelvic u/s can be done as outpt if that is preventing d/c
Yesterday pt said she used medical THC about 3 times a week. Started Ozempic 6 weeks ago.
Disc poss combination of the two have made her fci n/v even worse
Looks like GI has been consulted. Pt will disc these meds with them
Assessment / Plan
-
Assessment: N/V abd pain - pain seems improved today but pt cont to have nausea
Fibroid uterus
Plan:
Pelvic u/s ordered - from previous imaging, fibroids are intermediate and seem stable.
Pt can be d/c from POSITION DESCRIPTION MANAGER standpoint. Pelvic u/s can be done as outpt if that is preventing d/c
Yesterday pt said she used medical THC about 3 times a week. Started Ozempic 6 weeks ago.
Disc poss combination of the two have made her fci n/v even worse
Looks like GI has been consulted. Pt will disc these meds with them
Subjective / Objective Data
Subjective Data
Pt feeling a little better but feels nausea has inc again this morning. No grease maker head complaints - no VB
Objective Data
Vital Signs
Temp Pulse Resp BP Pulse Ox
98.2 F 94 14 150/98 96
01/20/24 03:35 01/20/24 03:35 01/20/24 03:35 01/20/24 03:35 01/20/24 03:35
Intake & Output
01/19/24 01/20/24 01/21/24
06:59 06:59 06:59
Other:
Number of approximated MODERATE 2
amounts of urine
Physical Exam
-
Abdomen: Soft and Nontender
Other Findings:
On abd exam today there was no guarding or rebound. Pt did not seem to have pain on palpation.
Data Reviewed
-
Lab Data
01/20/24 05:26
01/20/24 05:26
Urine Color Yellow 01/19/24 11:27
Urine Clarity Clear (Clear) 01/19/24 11:27
Urine pH 6.0 (5.0-9.0) 01/19/24 11:27
Ur Specific Brule 1.005 (<1.030) 01/19/24 11:27
Urine Ketones 2+ (Negative) A 01/19/24 11:27
Urine Bilirubin Negative (Negative) 01/19/24 11:27
Urine Urobilinogen Negative (Neg - 1+) 01/19/24 11:27
[2024-01-20] MEDS: NSS (PRESERVATIVE FREE) 10 ML IV ×2 (08:10→19:34)
[2024-01-20] MEDS: PROTONIX IV 40 MG IV ×2 (08:10→19:34)
--- NOTE | 2024-01-20 09:08 | CON.GI ---
Addendum entered and electronically signed by Aaron Andrew DO 01/20/24 17:35:
I saw and examined the patient.
The AUTOMATIC RIVETING MACHINE OPERATOR's note was reviewed and I agree with the note.
Comment: This is a 53 y.o female with past medical history of migraines, known uterine fibroids, recent cellulitis (prev on abx), and on Ozempic for weight loss who presented to the ED with acute nausea, NBNB emesis, bilateral lower abdominal pain
and cramping. Never had symptoms to this severity in the past. Has been on Ozempic since October and recently increased her dose (by one unit) earlier this week on Tuesday. Additionally, noted to have left abarca cellulitis and was on a prolonged course
of Keflex for 3 weeks followed by this past week doxycycline for the past week. otherwise, no other fevers/chills or other constitutional symptoms or known sick contacts. No bloody stools or NSAIDs. She has never had a prior EGD or Colonoscopy. Labs
significant for leukocytosis with WBC 22k w/ left shift on admission without bandemia along with metabolic acidosis with HCO3- 16 and lactic acid 3.1. Reviewed prior imaging with Abd US 01/18/2023 which was negative for any gallbladder/biliary
pathology along with patent hepatic vasculature with normal doppler flows of PV (ie no PVT). CT Abd/pelvis also grossly unrevealing except for incidental submucosal fatty deposits in the colon but without any significant inflammatory changes or
bowel wall thickening or other portal-venous gas, pneumatosis or other concerning findings. Recently had pelvic US ordered as well [facility] hospital is currently pending. Etiology of intractable nausea/vomiting and abdominal cramping unclear but possibly
multifactorial in setting of viral gastroenteritis versus Ozempic-induced pseudo-gastroparesis (although pain/cramping is atypical) given time frame versus abx-associated diarrhea (given previous courses of abx with Keflex/Doxycyline). Infectious
w/u thus far negative. Surgery and OBGYN also following.
Recommendations:
- Agree with ongoing supportive care with IV fluids
- Maintain euvolemia and repletion of electrolytes
- Empiric IV PPI 40 mg BiD
- Send stool studies if patient is able to have a BM- C Diff, stool culture, stool O&P, Norovirus
- No plans for EGD at this time as very low suspicion for PUD
- Pain control and IV-antiemetics PRN
- F/u results of Pelvic US
- Rest of care as outlined below and per primary team
GI will continue to follow while inpatient.
Thank you for allowing me to participate in the care of this patient. Please do not hesitate to call for any further questions.
Original Note:
Consultation
-
Date/Time Consultation Requested: 01/19/241541
Date/Time Consultation Performed: 01/19/2408
Requesting Provider: Dr. Vincent
Performing Provider: Dr. Andrew/ANGELINE Marsh
Reason for Consultation: N/V/D, abd pain
Medical History
Chief Complaint / HPI
Chief Complaint: N/V/D/abd pain
History of Present Illness:
53 y/o female with PMH Migraines, anxiety, recent cellulitis left abarca with prolonged antibiotic use, uterine fibroids who is traveling back and forth between [place] and here who presents to the emergency room with acute onset of nausea, vomiting and
diarrhea associated with lower abdominal pain and cramping. We are asked to evaluate for the same. The patient states that she is on a compounded semaglutide with B12 and another compound. She states that she injects 6 units which was recently
increased. She believes this is the equivalent of 2.5 mg of semaglutide. She did this on Tuesday. She states that by Tuesday she started to develop nausea with cramping and diarrhea. She states that in the past when she would inject on Tuesday
she would develop nausea and cramping however this time it was associated with diarrhea with the increased dose. She also had recent foot surgery of the left foot and was utilizing hydrocodone on an as-needed basis. She also had a significant left
abarca cellulitis and was on a prolonged course of Keflex for 3 weeks followed by this past week doxycycline for the past week. She states that on Tuesday she developed acute onset of nausea, vomiting, diarrhea with multiple episodes with the
abdominal cramping that is usually lower abdomen in nature. She states that she is still having dry heaves and some vomiting as of 630 this morning. Her bowel movements have now gone from watery diarrhea to more loose. She is still having the
abdominal cramping. She denies any fevers however she does feel chilly and shakes at times. She denies any melena, hematochezia, dysphagia or odynophagia. Her last travel was to [place] 3 weeks ago. She denies any recent sick contacts that she is
aware of. She denies any raw or spoiled food that she is aware of. She has never had an endoscopy or colonoscopy before. Her maternal grandmother had a history of colon cancer.
Past Medical History
Past Medical History: Psychiatric (depression no meds stable) and Other (migraines, ETOH abuse (in history per chart currently denies use), anxiety, Recent cellulitis left abarca with prolonged antibiotic use, uterine fibroids)
Past Surgical History: Gynecological (breast augmentation), Orthopedic (Left foot surgery) and Other (Breast augmentation)
Social History
Tobacco: Non-Smoker
Alcohol: None
Drug: Marijuana
Personal:
Living: With Family
Employment: Employed
Family History
Family History: Other (Paternal grandmother colon cancer)
Allergies / Home Medications
Allergy/AdvReac Type Severity Reaction Status Date / Time
prochlorperazine Allergy Unknown Verified 01/19/24 08:23
[From Compazine]
�Medication �Instructions �Recorded
trazodone 100 mg tablet 100 mg PO HS Sleep 03/02/22
Nutrafol Women Hair Growth 1 cap PO DAILY 01/03/24
escitalopram oxalate 5 mg tablet 5 mg PO HS 01/03/24
(Lexapro)
rimegepant 75 mg disintegrating 75 mg PO DAILYPRN PRN migraines 01/03/24
tablet (Nurtec ODT)
ibuprofen 125 mg-acetaminophen 250 1 tab PO Q8HPRN PRN mild pain 01/19/24
mg tablet (Advil Dual Action)
ondansetron 4 mg disintegrating 4 mg PO Q6HPRN PRN nausea 01/19/24
tablet
semaglutide 0.25 mg or 0.5 mg (2 0.6 mg SC MO 01/19/24
mg/3 mL) subcutaneous pen injector
(Ozempic)
sumatriptan succinate 100 mg 100 mg PO DAILYPRN PRN mirgraines 01/19/24
tablet (Imitrex)
Review of Systems
-
All other systems: A 12 pt ROS was Negative except as stated above in HPI
Vital Signs
Temp Pulse Resp BP Pulse Ox
98.4 F 100 16 139/97 96
01/20/24 07:15 01/20/24 07:15 01/20/24 07:15 01/20/24 07:15 01/20/24 07:15
Physical Exam
Exam
General: Other (Appears somewhat uncomfortable)
HEENT: Anicteric
Respiratory: Clear
Cardiac: Regular Rhythm
GI: Soft, Non Tender (Mild mid abdominal tenderness), Non Distended and Normal Bowel Sounds
Musculoskeletal: No Edema
Skin: Warm and Dry
Neuro: AO x 3
Psych: Calm
Results
WBC 13.4 10^3/uL (4.8-10.8) H 01/20/24 05:26
Hgb 12.0 g/dL (12.0-16.0) 01/20/24 05:26
Hct 34.3 % (37.0-47.0) L 01/20/24 05:26
MCV 87.1 fL (81.0-99.0) 01/20/24 05:26
Plt Count 249 10^3/uL (130-400) D 01/20/24 05:26
Sodium 139 mmol/L (135-145) 01/20/24 05:26
Potassium 3.4 mmol/L (3.5-5.1) L 01/20/24 05:26
Chloride 102 mmol/L (98-107) 01/20/24 05:26
Carbon Dioxide 24 mmol/L (22-30) 01/20/24 05:26
BUN 12 mg/dl (7-17) 01/20/24 05:26
Creatinine 0.6 mg/dL (0.6-1.0) 01/20/24 05:26
Calcium 9.1 mg/dl (8.4-10.2) 01/20/24 05:26
Total Bilirubin 0.5 mg/dl (0.2-1.3) 01/20/24 05:26
AST 22 U/L (14-36) 01/20/24 05:26
ALT 14 U/L (0-35) 01/20/24 05:26
Alkaline Phosphatase 45 U/L (38-126) 01/20/24 05:26
Lipase 61 U/L (23-300) 01/19/24 08:56
Diagnostic Image Results:
CT abdomen pelvis with IV contrast 01/18/2023:
IMPRESSION:
Mild diverticulosis. No evidence of acute diverticulitis. Mild submucosal fat deposition associated with the descending colon, which may be related to patient body habitus, though has also been described in patients with history of inflammatory
bowel disease.
Normal appendix.
No obstructive uropathy.
Enlarged, fibroid uterus. Progressive.
Us Abd:
Negative Abd US
Prior GI Procedures:
EGD: Never had
Colonoscopy: Never had
Assessment / Plan
-
53 y/o female with PMH Migraines, anxiety, recent cellulitis left abarca with prolonged antibiotic use, uterine fibroids who is traveling back and forth between [place] and here who presents to the emergency room with acute onset of nausea, vomiting and
diarrhea associated with lower abdominal pain and cramping. We are asked to evaluate for the same. This could be secondary to the compounded semaglutide that the patient has been using since October with recent increase. As the patient states that
she usually has nausea with lower abdominal cramping approximately 2 days after the injection which correlates with her current symptoms however this time involves diarrhea. Second could be the fact that the patient also has had prolonged course of
antibiotics for left abarca cellulitis which has included Keflex for the past 3 weeks and now the addition of doxycycline for the past week. Other considerations could be viral gastroenteritis or infectious causes. Patient's white count is improving.
She was placed on pantoprazole as well as as needed Reglan or Tigan. She was on ceftriaxone and Flagyl which has been discontinued. Blood cultures are pending.
Impression:
Intractable Nausea/Vomiting
Diarrhea
Lower abdominal pain
Plan:
-Continue Pantoprazole
-Continue antiemetics
-Continue IVF and advance to clears when able
-Check stool for CDiff, Norovirus, stool culture
-No endoscopic intervention at present time.
-Patient does need colonoscopy in the future. Has never had one. Discussed with patient.
-Trend labs
-Further recommendations to be forthcoming.
-
-
Thank you for consultation and allowing me to participate in the patient's care. Please call the lining ironer GI physician during the after hours with any questions or concerns.
[2024-01-20] MEDS: ATIVAN 0.5 MG IV (10:29)
[2024-01-20] MEDS: NSS (PRESERVATIVE FREE) 0.25 ML IV (10:30)
[2024-01-20] MEDS: LR 1000 IV ×2 (10:30→21:55)
--- NOTE | 2024-01-20 10:40 | W.PN.GS2 ---
Addendum entered and electronically signed by Abdi Inman MD 01/20/24 11:01:
I saw and examined the patient.
The Cardiology Physician Assistant's note was reviewed and I agree with the note.
Comment: C/o ongoing n/v including emesis this am. Fullness and ttp at the suprapubic area where the large fibroid is. No plan for intervention from GS standpoint. Will follow peripherally.
Original Note:
Today's Communication / Plan
-
bowel rest/ivf
no surgery indicated
Assessment / Plan
-
53-year-old female with intractable nausea/vomiting and abdominal pain as well as loose stools.
Uncertain etiology; possible adverse reaction to recent increase in Ozempic dosage; possible viral gastroenteritis. She is also been on a prolonged course of antibiotics recently would check stool studies as well.
There does not appear to be any radiographic evidence of bowel threat, compromise or intra-abdominal process requiring surgical intervention. Condition improving with medical mangement
GI following / PIN PULLER eval completed
Continue with analgesics, antiemetics and IV fluid resuscitation, supportive care
Bowel rest
No indication for operative intervention at this time. Surgery service to follow peripherally, please call with questions/concerns
Subjective Data
-
Date of Service: January 20, 2024
Patient seen and examined at bedside with Dr. Inman. N/V overnight with last episode at 0600, better than yesterday. Pain improving but still present.
Objective Data
-
Intake and Output
01/19/24 01/20/24 01/21/24
06:59 06:59 06:59
Other:
Number of approximated MODERATE 2
amounts of urine
Vital Signs
Temp Pulse Resp BP Pulse Ox
98.4 F 100 16 139/97 96
01/20/24 07:15 01/20/24 07:15 01/20/24 07:15 01/20/24 07:15 01/20/24 07:15
Lab Results
01/20/24 05:26
01/20/24 05:26
Calcium 9.1 mg/dl (8.4-10.2) 01/20/24 05:26
Total Bilirubin 0.5 mg/dl (0.2-1.3) 01/20/24 05:26
AST 22 U/L (14-36) 01/20/24 05:26
ALT 14 U/L (0-35) 01/20/24 05:26
Alkaline Phosphatase 45 U/L (38-126) 01/20/24 05:26
Total Protein 6.4 g/dl (6.3-8.2) 01/20/24 05:26
Albumin 4.0 g/dl (3.5-5.0) 01/20/24 05:26
Physical Exam
-
NAD
ABD soft, ND, tenderness to lower abdomen with area of greatest tenderness suprapubically
[2024-01-20 11:30] VITALS: BP 133/90
[2024-01-20 16:25] VITALS: BP 158/101
--- NOTE | 2024-01-20 16:39 | CM ---
Chart reviewed and patient lives with spouse in a 2 story home, patient is independent with adl's and ambulation, no dme, patient drives.
PCP: Dr. Rodriges
[facility] in [place].
Plan; Home no needs when stable.
[2024-01-20] MEDS: TIGAN 200 MG IM ×2 (17:09→23:48)
[2024-01-20 19:12] VITALS: BP 146/92
[2024-01-20] MEDS: FLUSH (NSS) 1 FLUSH IV ×2 (19:33→23:48)
[2024-01-20] MEDS: DESYREL 100 MG PO (21:56)
--- NOTE | 2024-01-20 22:30 | PTCARENOTE ---
Patient with significant pain and nausea/dry heaves throughout evening since this RN came on shift. Patient with multiple one time doses of pain/nausea medications throughout dayshift with no relief. Patient getting PRN pain/nausea medication as
soon as she is able. Patient states she is passing gas, but no BM as of now. Stool studies/cultures pending collection. Unable to provide patient with nausea meds at this time -- notified ANGELINE Centeno of patient's request to have one time dose
Ativan ordered as this helped with her nausea this morning. After second request, one time dose PO Benadryl ordered and provided to patient -- see MAR. No Ativan provided at this time. No further intervention per provider at this time other than PRN
medications. Patient resting in bed, call mcdermott in reach. Will monitor.
[2024-01-20] MEDS: BENADRYL 25 MG PO (22:49)
[2024-01-20 23:57] VITALS: BP 149/94
[2024-01-21 03:24] VITALS: BP 142/88
[2024-01-21] MEDS: REGLAN 10 MG IV ×3 (04:28→20:58)
[2024-01-21] MEDS: DILAUDID 1 MG IV ×5 (04:28→20:58)
[2024-01-21] MEDS: FLUSH (NSS) 1 FLUSH IV ×2 (04:28→20:59)
[2024-01-21] MEDS: LR 1000 IV ×2 (05:48→20:02)
[2024-01-21 06:27] VITALS: BMI 22.8
[2024-01-21 07:15] LABS: Hematocrit 35.1 % (37.0-47.0); Hemoglobin 12.4 g/dL (12.0-16.0); Mean Corp Hgb Conc. 35.3 g/dL (33.0-37.0); Mean Corpuscular Hgb 31.6 pg (27.0-31.0); Mean Corpuscular Volume 89.5 fL (81.0-99.0); Mean Platelet Volume 9.9 fL (7.4-10.4); Platelet Count 231 10^3/uL (130-400); Red Blood Cell Count 3.92 10^6/uL (4.20-5.40); Red Cell Dist. Width 14.1 % (11.5-14.5); White Blood Cell Count 8.1 10^3/uL (4.8-10.8)
--- NOTE | 2024-01-21 07:40 | W.PN.HOSP.TC ---
Today's Communication/Plan
-
clear liquid diet
cont IVF support pending improvement in oral intake
K-rider once
pain control
antiemetic prn karen ignacio ativan
Assessment / Plan
Assessment / Plan
Physical Exam
General: No pallor, cyanosis, or jaundice. Appears comfortable no acute distress
HEENT: Throat clear. PERRLA Normocephalic atraumatic
NECK: Supple. No JVD Carotid Bruits
RESPIRATORY: Lungs clear to auscultation. No crackles wheezes stridor
CVS: S1, S2 normal. RRR. No murmur, rub or gallop.
ABDOMEN: Soft, mild tenderness bowel sounds present
EXTREMITIES: No peripheral cyanosis or edema.
STOCK CHECKERER: AOx3
IMPRESSION:
53F hx depression insomnia migraine on medicinal marijuana 10 years p/w acute onset nausea vomiting diarrhea abd pain that started in the morning. Abd with diffuse pain tenderness, day prior patient reported being in her usually state of health.
denies fevers chills coughing sneezing. Patient has been on ozempic for past 6 weeks, most recent dose on Tuesday 3 days ago. Patient also endorses recent spotting day prior to presentation, history uterine fibroids, irregular period cycles, last
full period many months ago. Labs notable for white count 22.2 and lactic acidosis 3.1 possibly all due to dehydration stress reactive. No significant kidney/liver dysfunction or bilirubin elevation noted. No acute abn's noted on CT abd/pelvis w
IV contrast only.
PLAN:
#Abd pain Nausea/vomiting unclear etiology
#White Count elevation Lactic acidosis most likely stress reactive dehydration
#hx Uterine Fibroids, irregular cycle, spotting prior to onset of symptoms
#possible Ozempic side effect
Tele
IVF support bowel rest, diet advanced to clear liquid as per GI
pain control
antiemetic prn
blood culture ngtd, procalcitonin negative, lactic acidosis resolved
empiric ceftriaxone flagyll discontinued monitor off
GI Surgery Change Person eval appreciated
Abd US appreciated
Pelvic US appreciated
Empiric IV protonix 40 mg BID
stool studies largely including Cdiff
#Mild Hypokalemia
IVF NS switched to LR
K-rider once 40 mEQ
#Depression/Insomonia
hold Lexapro for now to minimize QT prolonging agents
cont home Trazodone
#Migraine
headache free at this time.
DVT ppx SCD
GI ppx Protonix
Full Code
I spent a total of 50 minutes with the patient or on the floor. More than 50% of this time involved counseling and coordination of care.
Anticipated Discharge: 24 - 48 hours
Subjective/Interval History
-
Date of Service: January 21, 2024
Seen and examined at bedside in no acute distress resting comfortably in bed. Significant improvement from day prior though symptoms not resolved
Objective Data
-
Labs:
Laboratory Results
01/21/24
06:21
WBC 8.1
Hgb 12.4
Hct 35.1 L
Plt Count 231
Sodium Pending
Potassium Pending
Chloride Pending
Carbon Dioxide Pending
BUN Pending
Creatinine Pending
Glucose Pending
Calcium Pending
Total Bilirubin Pending
AST Pending
ALT Pending
Alkaline Phosphatase Pending
Vital Signs:
Vital Signs
Temp Pulse Resp BP Pulse Ox
98.0 F 90 14 142/88 100
01/21/24 03:24 01/21/24 03:24 01/21/24 03:24 01/21/24 03:24 01/21/24 03:24
I&O
01/20/24 01/21/24 01/22/24
06:59 06:59 05:59
Intake Total 1370 / 1370
Balance 1370 / 1370
[2024-01-21 07:44] VITALS: BP 166/103
[2024-01-21 07:53] LABS: ALT (SGPT) 17 U/L (0-35); AST (SGOT) 22 U/L (14-36); Albumin 3.5 g/dl (3.5-5.0); Alkaline Phosphatase 47 U/L (38-126); Blood Urea Nitrogen 9 mg/dl (7-17); Carbon Dioxide 26 mmol/L (22-30); Chloride 99 mmol/L (98-107); Estimated Creatinine Clearance 103 ml/min; Glucose 79 mg/dl (70-99); Potassium 3.2 mmol/L (3.5-5.1); Sodium 136 mmol/L (135-145); Total Bilirubin 0.6 mg/dl (0.2-1.3); Total Protein 5.9 g/dl (6.3-8.2); eGFR > 60.00
[2024-01-21] MEDS: NSS (PRESERVATIVE FREE) 10 ML IV ×2 (08:30→20:04)
--- NOTE | 2024-01-21 08:30 | W.PN.UPDATE ---
Update Note
Progress Note Update
INSTRUCTOR PAINTING update - pt not seen -
Pelvic u/s shows 3 fibroids - same seen in u/s about 2 y ago. IUD in correct position and endometrium normal. Ovaries not seen - no free fluid. Fibroids relatively stable. Can continue eval as out pt with Dr. Zhu or Dr. Camacho - pt has
seen both in the past 2 years for fibroid eval.
Ok to d/c from INSTRUCTOR PAINTING standpoint.
[2024-01-21] MEDS: PROTONIX IV 40 MG IV ×2 (08:31→20:04)
[2024-01-21] MEDS: TIGAN 200 MG IM ×2 (08:39→18:12)
--- NOTE | 2024-01-21 10:23 | W.PN.GI.CBS2 ---
Today's Communication / Plan
-
Still with abdominal discomfort but reports improving symptoms. Trial CLD today and may ADAT to low-residue/low-fiber, low-fat diet. No plans for EGD. Continue ongoing supportive care. GI team will sign-off. Please re-engage if any other questions
or concerns.
Assessment / Plan
-
This is a 53 y.o female with past medical history of migraines, known uterine fibroids, recent cellulitis (prev on abx), and on Ozempic for weight loss who presented to the ED with acute nausea, NBNB emesis, bilateral lower abdominal pain and
cramping. Never had symptoms to this severity in the past. Has been on Ozempic since October and recently increased her dose (by one unit) earlier this week on Tuesday. Additionally, noted to have left abarca cellulitis and was on a prolonged course of
Keflex for 3 weeks followed by this past week doxycycline for the past week. otherwise, no other fevers/chills or other constitutional symptoms or known sick contacts. No bloody stools or NSAIDs. She has never had a prior EGD or Colonoscopy. Labs
significant for leukocytosis with WBC 22k w/ left shift on admission without bandemia along with metabolic acidosis with HCO3- 16 and lactic acid 3.1. Reviewed prior imaging with Abd US 01/18/2023 which was negative for any gallbladder/biliary
pathology along with patent hepatic vasculature with normal doppler flows of PV (ie no PVT). CT Abd/pelvis also grossly unrevealing except for incidental submucosal fatty deposits in the colon but without any significant inflammatory changes or
bowel wall thickening or other portal-venous gas, pneumatosis or other concerning findings. Recently had pelvic US ordered as well whcih is currently pending. Etiology of intractable nausea/vomiting and abdominal cramping unclear but possibly
multifactorial in setting of viral gastroenteritis versus Ozempic-induced pseudo-gastroparesis (although pain/cramping is atypical) given time frame versus abx-associated diarrhea (given previous courses of abx with Keflex/Doxycyline). Infectious
w/u thus far negative. Surgery and OBGYN also following.
#Abdominal Pain #Intractable Nausea/Vomiting 2/2- IMPROVING
#Suspected Viral Gastroenteritis
#Ozempic-induced pseudogastroparesis
Recommendations:
- Trial with CLD today and may ADAT to low-fiber, low-residue and low-fat diet given improving discomfort
- Stop additional IVF, replete electrolytes for bowel function
- May continue empiric IV PPI 40 mg BiD and may continue at discharge
- Without stool sample and much less likely infectious diarrhea
- Given improving symptoms and suspected gastroenteritis with some component of delayed emptying which is likely contributing (given recent increase doseage of Ozempic), no plans for an EGD at this time
- Pain control and [id number] PRN
- Pelvic US appears stable, OBGYN recommending outpatient f/u
- May follow-up with GI as an outpatient as patient would benefit from a colonoscopy along with consideration of an EGD as well if upper symptoms persist
- Rest of care per primary team
Discussed with patient this AM along with primary internal medicine team.
GI team will sign-off. Please call back with any questions or concerns.
Subjective
Subjective
Date of Service: January 21, 2024
- Pelvic US 01/20/2024- Impression: Leiomyomatous uterus with the largest measuring up to 7.8 cm along the posterior uterus and IUD in stable position
- Otherwise, no acute events overnight
Reports feeling better and having less abdominal pain. No diarrhea or loose stools. Denies any other fevers or chills or other constitutional symptoms. Still with some discomfort but having to have some soup. Discussed that this will likely take
time and she should STOP her Ozempic as this is only for weight loss (BMI of 22) as this is also likely contributing.
AM labs with normalization of previous leukocytosis and only mildly low K 3.2.
Objective
Data Reviewed
Laboratory Data:
Laboratory Results
01/21/24 06:21
01/21/24 06:21
Laboratory Results
Total Bilirubin 0.6 mg/dl (0.2-1.3) 01/21/24 06:21
AST 22 U/L (14-36) 01/21/24 06:21
ALT 17 U/L (0-35) 01/21/24 06:21
Alkaline Phosphatase 47 U/L (38-126) 01/21/24 06:21
Lipase 61 U/L (23-300) 01/19/24 08:56
Vital Signs and I&O:
Vital Signs
Temp Pulse Resp BP Pulse Ox
98.3 F 97 16 166/103 97
01/21/24 07:44 01/21/24 07:44 01/21/24 07:44 01/21/24 07:44 01/21/24 07:44
I&O
01/20/24 01/21/24 01/22/24
06:59 06:59 05:59
Intake Total 1370 / 1370
Balance 1370 / 1370
Physical Exam
Physical Exam
HEENT: Anicteric and Moist mucous membranes
Cardiology: Normal Sinus Rhythm
Pulmonary: Clear and Other (Normal WOB on room air)
GI: Soft, Non Distended and Non Tender
Extremities: No Edema
Neuro: Non Focal
[2024-01-21] MEDS: KCL 270 MEQ IV (11:04)
[2024-01-21] MEDS: ATIVAN 0.5 MG IV (11:05)
[2024-01-21] MEDS: NSS (PRESERVATIVE FREE) 0.25 ML IV (11:05)
[2024-01-21 11:23] VITALS: BP 152/105
--- NOTE | 2024-01-21 11:32 | W.PN.GYN.DG ---
Today's Communication / Plan
-
Ok to d/c to home from HAULPAK DRIVER standpoint - will sign off on pt
Pt has f/u appt with Dr. Camacho scheduled
Assessment / Plan
-
Assessment:
Abd pain - n/v/d - unknown source
+ fibroids - stable on u/s - no freee fluid - IUD in correct place
Plan:
Ok to d/c to home from HAULPAK DRIVER standpoint - will sign off on pt
Pt has f/u appt with Dr. Camacho scheduled
Subjective / Objective Data
Subjective Data
Pt feeling better - less abd pain - less nausea - is just starting clear liq now
Objective Data
Vital Signs
Temp Pulse Resp BP Pulse Ox
98.3 F 83 16 152/105 97
01/21/24 11:23 01/21/24 11:23 01/21/24 11:23 01/21/24 11:23 01/21/24 11:23
Intake & Output
01/20/24 01/21/24 01/22/24
06:59 06:59 05:59
Intake Total 1370 / 1370
Balance 1370 / 1370
Intake:
Oral fluids 120 / 120
IV fluids (Total) 1200 / 1200
IV piggybacks 50 / 50
Other:
Number of approximated MODERATE 2 3
amounts of urine
Number of immeasurable emeses? 3
Physical Exam
-
Abdomen: Soft and Nontender
Data Reviewed
-
Lab Data
01/21/24 06:21
01/21/24 06:21
Urine Color Yellow 01/19/24 11:27
Urine Clarity Clear (Clear) 01/19/24 11:27
Urine pH 6.0 (5.0-9.0) 01/19/24 11:27
Ur Specific [place] 1.005 (<1.030) 01/19/24 11:27
Urine Ketones 2+ (Negative) A 01/19/24 11:27
Urine Bilirubin Negative (Negative) 01/19/24 11:27
Urine Urobilinogen Negative (Neg - 1+) 01/19/24 11:27
[2024-01-21 15:49] VITALS: BP 146/100
[2024-01-21 19:20] VITALS: BP 147/99
[2024-01-21] MEDS: DESYREL 100 MG PO (20:59)
[2024-01-22 03:49] VITALS: BP 146/91
[2024-01-22] MEDS: DILAUDID 1 MG IV ×4 (03:52→22:05)
[2024-01-22] MEDS: REGLAN 10 MG IV ×3 (03:53→17:49)
[2024-01-22] MEDS: FLUSH (NSS) 1 FLUSH IV (03:53)
[2024-01-22 05:04] LABS: Hemoglobin 13.1 g/dL (12.0-16.0); Mean Corp Hgb Conc. 35.4 g/dL (33.0-37.0); Mean Corpuscular Hgb 30.6 pg (27.0-31.0); Mean Corpuscular Volume 86.4 fL (81.0-99.0); Mean Platelet Volume 9.2 fL (7.4-10.4); Platelet Count 227 10^3/uL (130-400); Red Blood Cell Count 4.28 10^6/uL (4.20-5.40); Red Cell Dist. Width 13.8 % (11.5-14.5); White Blood Cell Count 7.5 10^3/uL (4.8-10.8)
[2024-01-22] MEDS: LR 1000 IV ×2 (05:12→15:26)
[2024-01-22 05:33] LABS: ALT (SGPT) 14 U/L (0-35); AST (SGOT) 19 U/L (14-36); Albumin 3.6 g/dl (3.5-5.0); Alkaline Phosphatase 44 U/L (38-126); Blood Urea Nitrogen 6 mg/dl (7-17); Calcium 8.8 mg/dl (8.4-10.2); Carbon Dioxide 25 mmol/L (22-30); Chloride 99 mmol/L (98-107); Estimated Creatinine Clearance 103 ml/min; Glucose 94 mg/dl (70-99); Potassium 3.4 mmol/L (3.5-5.1); Sodium 137 mmol/L (135-145); Total Bilirubin 0.9 mg/dl (0.2-1.3); Total Protein 6.1 g/dl (6.3-8.2); eGFR > 60.00
[2024-01-22 06:00] VITALS: BMI 22.8
--- NOTE | 2024-01-22 06:08 | PTCARENOTE ---
Potassium 3.4, received rider yesterday 01/20 for potassium of 3.2. Notified ANGELINE Centeno -- no interventions at this time.
--- NOTE | 2024-01-22 06:40 | W.PN.HOSP.TC ---
Today's Communication/Plan
-
cont clear liquid diet for now
IVF LR pending improvement in oral intake
replete potassium Magnesium
pain control
antiemetic prn Reglan, Tigan, Ativan
Assessment / Plan
Assessment / Plan
Physical Exam
General: No pallor, cyanosis, or jaundice. Mild moderate distress d/t nausea abd pain
HEENT: Throat clear. PERRLA Normocephalic atraumatic
NECK: Supple. No JVD Carotid Bruits
RESPIRATORY: Lungs clear to auscultation. No crackles wheezes stridor
CVS: S1, S2 normal. RRR. No murmur, rub or gallop.
ABDOMEN: Soft, mild tenderness bowel sounds present
EXTREMITIES: No peripheral cyanosis or edema.
SAS STATISTICAL PROGRAMMER: AOx3
IMPRESSION:
53F hx depression insomnia migraine on medicinal marijuana 10 years p/w acute onset nausea vomiting diarrhea abd pain that started in the morning. Abd with diffuse pain tenderness, day prior patient reported being in her usually state of health.
denies fevers chills coughing sneezing. Patient has been on ozempic for past 6 weeks, most recent dose on Tuesday 3 days ago. Patient also endorses recent spotting day prior to presentation, history uterine fibroids, irregular period cycles, last
full period many months ago. Labs notable for white count 22.2 and lactic acidosis 3.1 possibly all due to dehydration stress reactive. No significant kidney/liver dysfunction or bilirubin elevation noted. No acute abn's noted on CT abd/pelvis w
IV contrast only.
PLAN:
#Abd pain Nausea/vomiting unclear etiology possible combination Ozempic and medicinal marijuana use
#White Count elevation Lactic acidosis most likely stress reactive dehydration
#hx Uterine Fibroids, irregular cycle, spotting prior to onset of symptoms
Tele
IVF support LR
clear liquid diet advance as tolerability/appetite improves, consider NPO if symptoms worsen
pain control
antiemetic prn Reglan, Tigan, ativan
blood culture ngtd, procalcitonin negative, lactic acidosis resolved
empiric ceftriaxone flagyll discontinued monitor off
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
Abd US appreciated no acute abn's
Pelvic US appreciated Leiomyomatous uterus w/ largest 7.8 cm posterior uterus, intrauterine device well positioned endometrial canal
cont Empiric IV protonix 40 mg BID
stool studies largely including Cdiff
#Hypokalemia
#Hypomagnesemia
Monitor and replete as necessary
#Depression/Insomonia
hold Lexapro for now to minimize QT prolonging agents
cont home Trazodone
#Migraine
headache free at this time.
DVT ppx SCD
GI ppx Protonix
Full Code
I spent a total of 50 minutes with the patient or on the floor. More than 50% of this time involved counseling and coordination of care.
Anticipated Discharge: 24 - 48 hours
Subjective/Interval History
-
Date of Service: January 22, 2024
Nausea vomiting abd pain persists though still significantly improved from initial presentation. Tolerating clear liquid diet to an extent though appetite remains poor due to symptoms.
Objective Data
-
Labs:
Laboratory Results
01/22/24
04:48
WBC 7.5
Hgb 13.1
Hct 37.0
Plt Count 227
Sodium 137
Potassium 3.4 L
Chloride 99
Carbon Dioxide 25
BUN 6 L
Creatinine 0.6
Glucose 94
Calcium 8.8
Total Bilirubin 0.9
AST 19
ALT 14
Alkaline Phosphatase 44
Vital Signs:
Vital Signs
Temp Pulse Resp BP Pulse Ox
98.2 F 92 18 146/91 98
01/22/24 03:49 01/22/24 03:49 01/22/24 03:49 01/22/24 03:49 01/22/24 03:49
I&O
01/20/24 01/21/24 01/22/24
06:59 06:59 05:59
Intake Total 1370 / 1370 480 / 480
Balance 1370 / 1370 480 / 480
[2024-01-22 07:15] VITALS: BP 172/98
[2024-01-22 08:16] LABS: Magnesium 1.4 mg/dl (1.6-2.3); Phosphorus 3.5 mg/dl (2.5-4.5)
[2024-01-22] MEDS: NSS (PRESERVATIVE FREE) 10 ML IV ×2 (09:20→20:33)
[2024-01-22] MEDS: PROTONIX IV 40 MG IV ×2 (09:20→20:33)
[2024-01-22 10:28] VITALS: BMI 22.8
[2024-01-22 11:00] VITALS: BP 149/106
[2024-01-22 11:19] LABS: Troponin I < 0.012 ng/ml
[2024-01-22] MEDS: MAGNESIUM SULFATE 100 IV (12:36)
[2024-01-22] MEDS: KCL 160 MEQ IV (12:41)
[2024-01-22] MEDS: ATIVAN 1 MG IV (12:53)
[2024-01-22 15:10] VITALS: BP 147/83
[2024-01-22] MEDS: DESYREL 100 MG PO (22:05)
[2024-01-22] MEDS: TIGAN 200 MG IM (22:05)
[2024-01-22 23:51] VITALS: BP 135/87
[2024-01-23] MEDS: LR 1000 IV ×2 (01:30→12:02)
[2024-01-23] MEDS: NSS (PRESERVATIVE FREE) 0.5 ML IV (04:44)
[2024-01-23] MEDS: ATIVAN 1 MG IV (04:44)
[2024-01-23 05:54] LABS: Hematocrit 34.7 % (37.0-47.0); Hemoglobin 12.3 g/dL (12.0-16.0); Mean Corp Hgb Conc. 35.4 g/dL (33.0-37.0); Mean Corpuscular Hgb 31.6 pg (27.0-31.0); Mean Corpuscular Volume 89.2 fL (81.0-99.0); Mean Platelet Volume 9.3 fL (7.4-10.4); Platelet Count 228 10^3/uL (130-400); Red Blood Cell Count 3.89 10^6/uL (4.20-5.40); Red Cell Dist. Width 13.5 % (11.5-14.5); White Blood Cell Count 7.3 10^3/uL (4.8-10.8)
[2024-01-23 06:00] VITALS: BMI 23.1
[2024-01-23 06:53] LABS: ALT (SGPT) 12 U/L (0-35); AST (SGOT) 16 U/L (14-36); Albumin 3.2 g/dl (3.5-5.0); Alkaline Phosphatase 34 U/L (38-126); Blood Urea Nitrogen 4 mg/dl (7-17); Calcium 8.4 mg/dl (8.4-10.2); Carbon Dioxide 27 mmol/L (22-30); Chloride 100 mmol/L (98-107); Estimated Creatinine Clearance 103 ml/min; Glucose 100 mg/dl (70-99); Magnesium 1.8 mg/dl (1.6-2.3); Phosphorus 4.4 mg/dl (2.5-4.5); Potassium 3.1 mmol/L (3.5-5.1); Sodium 137 mmol/L (135-145); Total Bilirubin 0.6 mg/dl (0.2-1.3); Total Protein 5.5 g/dl (6.3-8.2); eGFR > 60.00
[2024-01-23 07:31] VITALS: BP 143/94
[2024-01-23] MEDS: NSS (PRESERVATIVE FREE) 10 ML IV (07:57)
[2024-01-23] MEDS: KCL 40 MEQ PO (07:57)
[2024-01-23] MEDS: PROTONIX IV 40 MG IV (07:58)
--- NOTE | 2024-01-23 08:02 | W.PN.HOSP.TC ---
Addendum entered and electronically signed by Henok Mills MD 01/24/24 21:11:
Concern for Sepsis-POA.
Original Note:
Today's Communication/Plan
-
Discharge today
Assessment / Plan
Assessment / Plan
Physical Exam
General: Not in acute distress
HEENT: Normocephalic atraumatic
NECK: Supple.
RESPIRATORY: Lungs clear to auscultation bilaterally.
CVS: S1, S2 normal. RRR.
ABDOMEN: Soft, mild tenderness bowel sounds present
EXTREMITIES: No peripheral cyanosis or edema.
WELL DRILL OPERATOR: AAOx3
Assessment/Plan
53F hx depression insomnia migraine on medicinal marijuana 10 years p/w acute onset nausea vomiting diarrhea abd pain that started in the morning. Abd with diffuse pain tenderness, day prior patient reported being in her usually state of health.
denies fevers chills coughing sneezing. Patient has been on ozempic for past 6 weeks, most recent dose on Tuesday 3 days ago. Patient also endorses recent spotting day prior to presentation, history uterine fibroids, irregular period cycles, last
full period many months ago. Labs notable for white count 22.2 and lactic acidosis 3.1 possibly all due to dehydration stress reactive. No significant kidney/liver dysfunction or bilirubin elevation noted. No acute abn's noted on CT abd/pelvis w
IV contrast only.
#Abd pain Nausea/vomiting unclear etiology possible combination Ozempic, recent antibiotics and occasional medicinal marijuana use
#Suspected gastroenteritis with some component of delayed emptying which is likely contributing (given recent increase doseage of Ozempic)
#White Count elevation Lactic acidosis most likely stress reactive dehydration
#History of Uterine Fibroids, irregular cycle, spotting prior to onset of symptoms
antiemetic prn Zofran -- no Reglan, Ativan as per discussion with pharmaceutical salesperson -- patient's nausea is expected to resolve over time
blood culture ngtd, procalcitonin negative, lactic acidosis resolved
empiric ceftriaxone flagyll discontinued monitor off
GI Surgery Shuttle Preparation Supervisor eval appreciated since signed off, outpt follow up recommended GI and Shuttle Preparation Supervisor
Abd US appreciated no acute abn's
Pelvic US appreciated Leiomyomatous uterus w/ largest 7.8 cm posterior uterus, intrauterine device well positioned endometrial canal
Stop Ozempic
Continue PO Protonix 40 mg BID for 7 more days
Continue low-residue/low-fiber, low-fat diet
stool studies largely including Cdiff
Follow-up outpatient with Dr. Camacho ([facility])
#Hypokalemia - RESOLVED
#Hypomagnesemia - RESOLVED
Monitor and replete as necessary
On discharge, potassium and magnesium supplementation, with close outpatient follow-up
#Depression/Insomnia
hold Lexapro for now to minimize QT prolonging agents
cont home Trazodone
#Migraine
headache free at this time.
DVT ppx Lovenox
GI ppx Protonix
Full Code
More than 30 minutes spent in discharge including
Final examination of the patient
Summarizing hospital stay
Instructions for continuing care to all relevant caregivers
Preparation of discharge records, prescriptions, and referral forms
Total time spent (in minutes): 38
Anticipated Discharge: Today
Subjective/Interval History
-
Date of Service: January 23, 2024
Patient was seen and examined. She reported she is tolerating oral intake. Her symptoms have overall improved.
Objective Data
-
Labs:
Laboratory Results
01/23/24
05:40
WBC 7.3
Hgb 12.3
Hct 34.7 L
Plt Count 228
Sodium 137
Potassium 3.1 L
Chloride 100
Carbon Dioxide 27
BUN 4 L
Creatinine 0.6
Glucose 100 H
Calcium 8.4
Total Bilirubin 0.6
AST 16
ALT 12
Alkaline Phosphatase 34 L
Vital Signs:
Vital Signs
Temp Pulse Resp BP Pulse Ox
98.3 F 94 16 143/94 96
01/23/24 07:31 01/23/24 07:31 01/23/24 07:31 01/23/24 07:31 01/23/24 07:31
I&O
01/22/24 01/23/24 01/24/24
06:59 06:59 06:59
Intake Total 2730 / 2730
Balance 2730 / 2730
[2024-01-23] MEDS: REGLAN 10 MG IV ×2 (08:50→15:04)
[2024-01-23] MEDS: DILAUDID 1 MG IV (08:50)
[2024-01-23 15:20] VITALS: BP 134/94
[2024-01-23 15:27] LABS: Blood Urea Nitrogen 4 mg/dl (7-17); Calcium 9.1 mg/dl (8.4-10.2); Carbon Dioxide 25 mmol/L (22-30); Chloride 101 mmol/L (98-107); Estimated Creatinine Clearance 103 ml/min; Glucose 124 mg/dl (70-99); Magnesium 1.6 mg/dl (1.6-2.3); Potassium 3.5 mmol/L (3.5-5.1); Sodium 138 mmol/L (135-145); eGFR > 60.00
--- NOTE | 2024-01-24 08:37 | PN.CDI ---
CDI
- -
CDI:
Physician Documentation Request
Admit Date: 01/19/24 15:07
Dear Doctor Gene,
Please review the following and provide your response in the progress notes.
Clinical Indicators:
Abdominal pain/Nausea/Vomiting
Progress note 01/22,' Suspected gastroenteritis with some component of delayed emptying which is likely contributing (given recent increase doseage of Ozempic)...White Count elevation Lactic acidosis...'
GI Progress notes , ' Suspected Viral Gastroenteritis...'
On admit WBC 22.2, HR 111,Respirations 34
Please clarify which of the following most accurately describes the status of the patient's infection:
Sepsis-POA
- Systemic manifestations of infection, with 2 or more SIRS criteria which include:
- Fever >100.4 degrees F or hypothermia < 96.8 degrees F
- Leukocytosis - WBC > 12,000 or leukopenia - WBC < 4,000 or > 10% bands
- Tachycardia > 90 beats per minute
- Tachypnea - RR > 20 breaths per minute or PaCO2 , 32mmHg
Source: [employer] Manual 2013
SIRS
Viral Gastroenteritis , Without Systemic Illness
Other
Use of terms such as suspected, likely, concern for, or probable (associated with a specific diagnosis that is being evaluated, monitored, or treated as if it exists) are acceptable and can be coded in the inpatient setting, when documented at the
time of discharge.
Thank you,
Sierra Prince RN
CDI Specialist
[place] [facility]
Please use your independent medical judgment in providing your response.
== END 2024-01-23 18:22 | disposition home or self-care (01) | DRG 872 ==
LOC: 3 WEST ACU 15:07
PROVIDERS: Physician Assistant; ADMITTING PHYSICIAN Internal Medicine; ATTENDING PHYSICIAN Hospitalist; CONSULT PHYSICIAN Obstetrics & Gynecology Gynecology; CONSULT PHYSICIAN Surgery; EMERGENCY PHYSICIAN Emergency Medicine; FAMILY PHYSICIAN Internal Medicine; OTHER PHYSICIAN Student in an Organized Health Care Education/Training Program
DX: A41.89 Other specified sepsis (principal); E87.20 Acidosis, unspecified; L03.116 Cellulitis of left lower limb; A08.4 Viral intestinal infection, unspecified; T50.995A Adverse effect of other drugs, medicaments and biological substances, initial encounter; K31.84 Gastroparesis; F41.9 Anxiety disorder, unspecified; G43.909 Migraine, unspecified, not intractable, without status migrainosus; F32.A Depression, unspecified; E86.0 Dehydration; D25.9 Leiomyoma of uterus, unspecified; E87.6 Hypokalemia; E83.42 Hypomagnesemia; Z88.8 Allergy status to other drugs, medicaments and biological substances; Z79.2 Long term (current) use of antibiotics; Z79.899 Other long term (current) drug therapy; Z79.85 Long-term (current) use of injectable non-insulin antidiabetic drugs
CPT/HCPCS: 74177; 76700; 76830; 76856; 80048; 80053; 81003; 83605; 83690; 83735; 84100; 84145; 84484; 84703; 85025; 85027; 87040; 93005; 96361; 96374; 96375; 96376; 99285; Q9967

== ENCOUNTER → 2024-11-02 13:06 | Outpatient (REF) | payer OTHER, SELFPAY | LOC: HWRAD 13:06 | PROVIDERS: ATTENDING PHYSICIAN Obstetrics & Gynecology Gynecology; FAMILY PHYSICIAN Internal Medicine | DX: N93.9 Abnormal uterine and vaginal bleeding, unspecified (principal) | CPT/HCPCS: 76830; 76856 ==

== ENCOUNTER → 2025-01-18 15:07 | Outpatient (REF) | payer OTHER, SELFPAY | LOC: MRI 3T 15:07 | PROVIDERS: ATTENDING PHYSICIAN Nurse Practitioner Adult Health; FAMILY PHYSICIAN Internal Medicine | DX: G43.011 Migraine without aura, intractable, with status migrainosus (principal); G31.84 Mild cognitive impairment of uncertain or unknown etiology | CPT/HCPCS: 70553; A9575 ==